=== PATIENT | female | born 1980 ===

== ENCOUNTER 2023-12-08 04:30 | Inpatient (IN) | payer OTHER ==
[2023-12-06 09:30] VITALS: BMI 22.2
[2023-12-08] MEDS ORDERED: ceFAZolin SODIUM 1 GM VIAL ONE ×3 (12:06→13:43)
[2023-12-08] MEDS ORDERED: FENTANYL CITRATE/PF 50 MCG/ML VIAL ONE ×4 (12:16→16:09)
[2023-12-08] MEDS ORDERED: ROCURONIUM BROMIDE 50 MG/5 ML SYRINGE ONE (12:16)
[2023-12-08] MEDS ORDERED: PROPOFOL 20 ML ONE (12:16)
[2023-12-08] MEDS ORDERED: MIDAZOLAM HCL 2 MG/2 ML SINGLE DOSE VIAL ONE (12:16)
[2023-12-08] MEDS ORDERED: BUPIVACAINE HCL/PF 0.5% (5MG/ML) 10 ML VIAL ONE ×2 (12:26→13:13)
[2023-12-08] MEDS ORDERED: BUPIVACAINE LIPOSOME/PF (EXPAREL) 266 MG/20 ML VIAL ONE (12:26)
[2023-12-08] MEDS ORDERED: VASopressin 20 UNITS/ML VIAL IV ONE (13:14)
[2023-12-08] MEDS ORDERED: DEXAMETHASONE SOD PHOSPHATE 4 MG/1 ML VIAL ONE (13:26)
[2023-12-08] MEDS ORDERED: ONDANSETRON 4 MG/2 ML VIAL ONE ×3 (13:26→17:42)
[2023-12-08] MEDS: ceFAZolin SODIUM 1 GM VIAL IVPB ONE (13:29)
[2023-12-08] MEDS ORDERED: HYDROmorphone HCl 2 MG/ML VIAL ONE ×2 (13:44→16:23)
[2023-12-08] MEDS ORDERED: GLYCOPYRROLATE 0.2 MG/1 ML VIAL ONE ×2 (15:15→15:20)
[2023-12-08] MEDS ORDERED: NEOSTIGMINE METHYLSULFATE 0.5 MG/1 ML - 10 ML MDV ONE (15:15)
[2023-12-08] MEDS ORDERED: ACETAMINOPHEN INJECTION 100 ML IVPB ONE (16:09)
[2023-12-08] MEDS ORDERED: ONDANSETRON 4 MG/2 ML VIAL IVPUSH PRN ×2 (16:10→16:13)
[2023-12-08] MEDS ORDERED: BISACODYL 5 MG TABLET.DR (FP) PO PRN (16:13)
[2023-12-08] MEDS ORDERED: LACTATED RINGERS SOLUTION 1,000 ML IV SCH (16:15)
[2023-12-08] MEDS: ACETAMINOPHEN 1000 MG/100 ML BAG IVPB SCH (16:18)
[2023-12-08] MEDS ORDERED: IBUPROFEN 800 MG/8 ML IJ IVPB ONE (16:33)
[2023-12-08] MEDS: HYDROmorphone HCl 2 MG/ML VIAL IVPUSH PRN (16:35)
[2023-12-08] MEDS: IBUPROFEN 800 MG/8 ML IJ IVPB SCH (16:42)
[2023-12-08] MEDS: ONDANSETRON 4 MG/2 ML VIAL IVPUSH PRN (17:41)
[2023-12-08] MEDS ORDERED: HYDROmorphone HCl 2 MG/ML VIAL IVPB PRN (18:00)
[2023-12-08] MEDS: CEFAZOLIN SODIUM 2 GM in DEXTROSE 5%-WATER 100 ML IVPB ONE (23:21)
[2023-12-08] MEDS: DEXTROSE 5%-LACTATED RINGERS 1,000 ML IV SCH (23:22)
[2023-12-09] MEDS: DOXYCYCLINE INJECTION 100 MG in DEXTROSE 5%-WATER 100 ML IVPB SCH (00:32)
[2023-12-09 07:23] LABS: HEMATOCRIT 28.2 % (32.4-45.2); HEMOGLOBIN 9.9 GM/dL (10.7-15.3); MCHC 34.9 g/dl (32.0-36.0); MEAN CELL VOLUME 94.4 fl (80-96); MEAN PLT VOLUME 7.5 fl (7.5-11.1); PLATELET COUNT 158 10^3/uL (134-434); RBC 2.99 M/mm3 (3.60-5.2); RDW 12.9 % (11.6-15.6); WHITE BLOOD COUNT 6.3 K/mm3 (4.0-10.0)
[2023-12-09] MEDS: ACETAMINOPHEN 1000 MG/100 ML BAG IVPB SCH (07:38)
[2023-12-09] MEDS ORDERED: oxyCODONE HCL 5 MG TABLET PO PRN (13:00)
[2023-12-09] MEDS ORDERED: ACETAMINOPHEN 325 MG TABLET (FP) PO PRN (16:00)
[2023-12-09] MEDS: DOCUSATE SODIUM 100 MG CAPSULE (FP) PO PRN (19:23)
[2023-12-09] MEDS: oxyCODONE HCL 5 MG TABLET PO PRN (19:23)
[2023-12-10] MEDS: SIMETHICONE 80 MG TAB.CHEW (FP) PO PRN (06:18)
[2023-12-10] MEDS: IBUPROFEN 600 MG TABLET (FP) PO PRN (06:43)
[2023-12-10 10:29] VITALS: BP 136/90; PULSE 75; RESP 16; TEMP 98
== END 2023-12-10 12:05 | disposition home or self-care (01) | DRG 743 ==
LOC: J2C 04:30 → J3W 18:15
PROVIDERS: ADMIT Obstetrics & Gynecology; ATTEND Obstetrics & Gynecology
PROC: 0UB90ZZ Excision of Uterus, Open Approach (ICD-10-PCS; principal; 2023-12-08 13:00)
DX: D25.9 Leiomyoma of uterus, unspecified (principal); N97.8 Female infertility of other origin
CPT/HCPCS: 36415; 81025; 85027; 86850; 86900; 86901; 88305-TC; 94760; J0131